=== PATIENT | male | born 1990 | race African-American/Black ===

== ENCOUNTER 2019-01-30 12:37 | Emergency (ER) | payer OTHER ==
[~2019-01-30] VITALS: Ht 167.6 cm; Wt 68.0 kg
[2019-01-30 12:57] VITALS: BP_SYST 143
[2019-01-30] MEDS ORDERED: SODIUM BICARBONATE 8.4% VIAL 50 MEQ/50 ML VIAL INJ ONE (13:30)
[2019-01-30] MEDS ORDERED: BACITRACIN 1 GM OINT TP ONE (13:30)
[2019-01-30] MEDS ORDERED: IBUPROFEN 800 MG TABLET PO ONE (13:30)
[2019-01-30] MEDS ORDERED: LIDOCAINE 1% 10 MG/ML, 20 ML MDV INJ ONE (13:30)
[2019-01-30] MEDS ORDERED: DIPH-TET-PERTUS Vaccine 0.5 ML VIAL (ADACEL) I.M. ONE (13:30)
[2019-01-30 15:05] VITALS: BP_SYST 143
== END 2019-01-30 15:05 | disposition home or self-care (01) ==
LOC: SED 12:37
DX: S61.411A Laceration without foreign body of right hand, initial encounter (principal); R03.0 Elevated blood-pressure reading, without diagnosis of hypertension; Z88.0 Allergy status to penicillin; W26.8XXA Contact with other sharp object(s), not elsewhere classified, initial encounter; Y93.89 Activity, other specified; Y92.89 Other specified places as the place of occurrence of the external cause; Y99.0 Civilian activity done for income or pay
CPT/HCPCS: 12002; 90471; 90715; 99284; J2001

== ENCOUNTER 2019-02-03 09:42 | Emergency (ER) | payer OTHER ==
[~2019-02-03] VITALS: Ht 167.6 cm; Wt 68.0 kg
[2019-02-03 09:48] VITALS: BP_SYST 132
[2019-02-03 11:05] VITALS: BP_SYST 132
== END 2019-02-03 11:05 | disposition home or self-care (01) ==
LOC: SED 09:42
DX: S61.411D Laceration without foreign body of right hand, subsequent encounter (principal); Z88.0 Allergy status to penicillin; W26.8XXD Contact with other sharp object(s), not elsewhere classified, subsequent encounter
CPT/HCPCS: 99281

== ENCOUNTER 2019-02-08 16:09 | Emergency (ER) | payer OTHER ==
[~2019-02-08] VITALS: Ht 167.6 cm; Wt 68.0 kg
[2019-02-08 16:10] VITALS: BP_SYST 122
--- NOTE | 2019-02-08 16:15 | NUR ---
Patient triaged and placed in waiting room. VSS and patient appears in no acute distress at this time. Accompanied by family, awaiting available bed, and MD notified of need for MSE.
--- NOTE | 2019-02-08 17:15 | NUR ---
Patient to ER bed 2 for evaluation. Report given to
--- NOTE | 2019-02-08 17:20 | NUR ---
RACQUEL CARVALHO [employer] DE[employer]ER at bedside examining patient.
--- NOTE | 2019-02-08 17:25 | NUR ---
PATIENT SITTING UP ON BED. AAOx4. RESPIRATIONS EVEN AND UNLABORED. NO SOB. DENIES OF ANY CHEST PAIN, HEADACHE, DIZZINESS, NAUSEA, VOMITING, OR FEVERS. PT'S RIGHT HAND SUTURES REMOVED BY TJ CARVALHO. LACERATION NOTED TO BE HEALING WELL AND WITH GOOD APPROXIMATION. NO BLEEDING. NO S/SX OF INFECTION NOTED. NO PAIN. PATIENT IN GOOD CONDITION AND IN NO ACUTE DISTRESS. ORDERS NOTED AND TO BE CARRIED OUT.
--- NOTE | 2019-02-08 17:30 | NUR ---
PER CARVALHO, [employer] OPERATOR ORDERS, RIGHT HAND LACERATION REPAIR CLEANSED WITH NS, PAT DRIED, AND 6 STERI-STRIPS APPLIED. TOLERATED WELL. NO ACTIVE BLEEDING NOTED. PT EDUCATED ON S/SX OF INFECTION AND DEHISCENCE AND INSTRUCTED TO SEEK MEDICAL ASSISTANCE WHEN PRESENT. PATIENT VERBALIZED UNDERSTANDING.
[2019-02-08 17:42] VITALS: BP_SYST 122
--- NOTE | 2019-02-08 17:42 | NUR ---
Patient given written and verbal discharge instructions and verbalizes understanding. ER MD discussed with patient the results and treatment provided. Patient in stable condition. ID arm band removed. No Rx given. Patient educated on pain management and to follow up with PMD. Pain Scale 0/10. Opportunity for questions provided and answered. Medication side effect fact sheet provided. PATIENT IN GOOD CONDITION AND IN NO ACUTE DISTRESS. PATIENT NOTED WITH A STABLE GAIT.
== END 2019-02-08 17:42 | disposition home or self-care (01) ==
LOC: SED 16:09
DX: S61.411D Laceration without foreign body of right hand, subsequent encounter (principal); Z88.0 Allergy status to penicillin; X58.XXXD Exposure to other specified factors, subsequent encounter
CPT/HCPCS: 99282